=== PATIENT | male | born 1945 | race Caucasian/White ===

== ENCOUNTER 2024-02-05 07:49 | Outpatient (AMB) | payer MEDICARE, BC, SELFPAY ==
--- NOTE | 2024-02-05 07:54 | A.OFFVIS_ITS ---
Vital Signs 02/05/24 08:02 Height 5 ft 7 in Weight 175 lb 4 oz BMI 27.4 BP 126/70 Blood Pressure Location Rt brachial Position Sitting Respiration 16 Pulse 64 Pulse Source Pulse Oximeter Pulse Oximetry (%) 98 Oxygen Delivery Method Room Air Intake Visit Reasons: G-XE-Unvpidwnc Disease Intake Note: Pt presents for new pt evaluation for Parkinson's. Leadership Development Consultant Required: No Allergies doxycycline Allergy (Mild, Verified 02/05/24 08:06) Rash HPI Comments Details: 78y/o Right handed male comes for further management of Parkinsons Disease.He was diagnosed with Parkinsons disease about 3-4 years ago when he presented with rest tremors in his right hand, He was started on Carbidopa/levodopa 25/100 and has been on it since then. He reports mild memory issues. Sleep is ok .He has prostrate issues and has nocturia which affects his sleep. He denies nightmares, REM behavior disorder. He goes hunting often - has dreams about hunting.Now he feels he is too tired now. His mood is Ok and he is motivated.He is more anxious now. He always did cooking dinner and now he finds himself when he is peeling potatoes or carrots he feels like his coordination is poor. He did not notice any drooling but his throat is dry. His feels that is speech is softer but he says that she has hearing problems. He has mild difficulty with hand writing, using utensils, dressing , needs help with shower. His gait is slow and mildly off balance - ahs a few falls when he hunts No dizziness , no double vision . He has constipation and frequency , urgency He used to play football and has mild head injury. He exercises regularly. His younger sister and had Parkinsons disease His older sister has Parkinsons disease. He has h/o ocular migraines usually after strenuous activity 0-1/month he has loss of sense of smell- he cannot smell cervantes even when cooking [facility] Medical History (Updated 02/05/24 @ 08:47 by Sophie Crowell MD) Anxiety Parkinson's disease without dyskinesia Tobacco chew use Hyperlipidemia BPH (benign prostatic hyperplasia) GERD (gastroesophageal reflux disease) HTN (hypertension) DVT (deep venous thrombosis) CKD (chronic kidney disease) Osteoarthritis Diabetes Hypokalemia Basal cell carcinoma Surgical History H/O shoulder replacement Total knee replacement status History of carpal tunnel surgery Social History Household Members: Spouse Alcohol intake: former Comment: Stopped 3 years ago Patient Tobacco Use Status: Former Tobacco user Tobacco use type: Cigar Physical Exam Vital Signs: Last Vital Signs Pulse 64 02/05/24 08:02 Resp 16 02/05/24 08:02 BP 126/70 02/05/24 08:02 Pulse Ox 98 02/05/24 08:02 Oxygen Delivery Method Room Air 02/05/24 08:02 BMI result Body Mass Index 27.4 Const General: cooperative, healthy appearing and no acute distress Nutritional Appearance: average body habitus Orientation/consciousness: patient oriented x3 HEENT Head: Yes normal to inspection Neck Other: mild antecollis and restricted range of motion Neuro Other: Mild decreased blink and facial expression MOCA -26/30 Voice- normal Right UE high amplitude rest tremors Fine Finger movements - severely decreased jayme l>R Alternating hand movements - decreased jayme Hand movements - decreased jayme Foot taps- decreased jayme Right UE 3 +cog wheel rigidity gait - stooped, mild slowness and decreased arm swing L. no arm swing on right General: patient oriented x3 and no focal motor deficits Cranial nerves: Yes CN's II-XII intact bilaterally, Yes Bilaterally intact EOM present, Yes Normal facial strength present and Yes Midline tongue present Cognition (Neuro): normal cognition Motor exam (neuro): 5/5 motor strength present throughout Deep tendon reflexes (DTR's): Right triceps reflex intensity grade: 1+, Left triceps reflex intensity grade: 1+, Rt Biceps (C5, C6): 1+, Left biceps reflex intensity grade: 1+, Right brachioradialis reflex intensity grade: 1+, Left brachioradialis reflex intensity grade: 1+, Right patellar reflex intensity grade: 1+ and Left patellar reflex intensity grade: 1+ Coordination: [id number] test normal Psych Appearance: grossly normal Affect: Anxious affect present Assessment & Plan Assessment & Plan (1) Parkinson's disease without dyskinesia: Code(s): G20.A1 - Parkinson's disease without dyskinesia, without mention of fluctuations Category: Medical (2) Anxiety: Code(s): F41.9 - Anxiety disorder, unspecified Category: Medical Plan Increase fluid intake Continue Carbidopa/levodopa 25/100 tid I will trial him on escitalopram 5mg qd F/u Urology Diagnosis was discussed in detail. Medications: New escitalopram oxalate 5 mg PO DAILY 30 tabs 6RF Coding Level of Care Code New Pt Level 4 (31578) Complex EM visit Add On G2211 Diagnoses Parkinson's disease without dyskinesia G20.A1 Anxiety F41.9
[2024-02-05 08:02] VITALS: BP 126/70; PULSE 64; RESP 16; O2SAT 98; BMI 27.4
== END 2024-02-05 08:58 | disposition home or self-care (01) ==
PROVIDERS: PCP Physician Assistant Medical; Visit Provider Psychiatry & Neurology Neurology
DX: G20.A1 Parkinson's disease without dyskinesia, without mention of fluctuations (principal); F41.9 Anxiety disorder, unspecified
CPT/HCPCS: 99204

== ENCOUNTER → 2024-02-05 07:49 | Outpatient (BNVA) | payer MEDICARE, BC, SELFPAY | PROVIDERS: PCP Physician Assistant Medical; Visit Provider Psychiatry & Neurology Neurology ==

== ENCOUNTER 2024-09-09 10:57 | Outpatient (AMB) | payer MEDICARE, BC, SELFPAY ==
--- NOTE | 2024-09-09 11:07 | MHC.OFFVIS ---
Vital Signs 09/09/24 11:10 Height 5 ft 7 in Weight 184 lb BMI 28.8 Intake Visit Reasons: follow up Parkinson Disease Intake Note: Patient presents for parkinson's disease Allergies doxycycline Allergy (Mild, Verified 09/09/24 11:11) Rash Medication List - Last Reconciled 09/09/24 by Sophie Crowell MD alfuzosin ER 10 mg PO DAILY carbidopa-levodopa 25-100 mg 1 tab PO TID escitalopram oxalate 5 mg PO DAILY hydrochlorothiazide 25 mg PO DAILY lisinopril 10 mg PO DAILY omeprazole 20 mg PO DAILY oxybutynin chloride 5 mg PO DAILY potassium chloride ER 20 mEq PO BID rosuvastatin 40 mg PO DAILY saw palmetto 1,000 mg PO DAILY HPI Comments Details: 79y/o Right handed male comes for follow up of Parkinsons Disease.He reports losing his taste and cannot smell food His hand coordination is slower .He does hunting and is very active . History from last visit-He was diagnosed with Parkinsons disease about 3-4 years ago when he presented with rest tremors in his right hand, He was started on Carbidopa/levodopa 25/100 and has been on it since then. He reports mild memory issues. Sleep is ok .He has prostrate issues and has nocturia which affects his sleep. He denies nightmares, REM behavior disorder. He goes hunting often - has dreams about hunting.Now he feels he is too tired now. His mood is Ok and he is motivated.He is more anxious now. He always did cooking dinner and now he finds himself when he is peeling potatoes or carrots he feels like his coordination is poor. He did not notice any drooling but his throat is dry. His feels that is speech is softer but he says that she has hearing problems. He has mild difficulty with hand writing, using utensils, dressing , needs help with shower. His gait is slow and mildly off balance - ahs a few falls when he hunts No dizziness , no double vision . He has constipation and frequency , urgency He used to play football and has mild head injury. He exercises regularly. His younger sister and had Parkinsons disease His older sister has Parkinsons disease. He has h/o ocular migraines usually after strenuous activity 0-1/month he has loss of sense of smell- he cannot smell cervantes even when cooking [facility] Medical History Anxiety Parkinson's disease without dyskinesia Tobacco chew use Hyperlipidemia BPH (benign prostatic hyperplasia) GERD (gastroesophageal reflux disease) HTN (hypertension) DVT (deep venous thrombosis) CKD (chronic kidney disease) Osteoarthritis Diabetes Hypokalemia Basal cell carcinoma Surgical History H/O shoulder replacement Total knee replacement status History of carpal tunnel surgery Social History Household Members: Spouse Alcohol intake: former Comment: Stopped 3 years ago Patient Tobacco Use Status: Former Tobacco user Tobacco use type: Cigar Physical Exam Vital Signs: BMI result Body Mass Index 28.8 Const General: cooperative, healthy appearing and no acute distress Nutritional Appearance: average body habitus Orientation/consciousness: patient oriented x3 HEENT Head: Yes normal to inspection Neck Other: mild antecollis and restricted range of motion Neuro Other: Mild decreased blink and facial expression MOCA -26/30 Voice- normal Right UE high amplitude rest tremors Fine Finger movements - moderately decreased jayme l>R Alternating hand movements - decreased jayme Hand movements - decreased jayme Foot taps- decreased jayme Right UE 1 +cog wheel rigidity gait - stooped, mild slowness and decreased arm swing L. no arm swing on right General: patient oriented x3 and no focal motor deficits Cranial nerves: Yes CN's II-XII intact bilaterally, Yes Bilaterally intact EOM present, Yes Normal facial strength present and Yes Midline tongue present Cognition (Neuro): normal cognition Motor exam (neuro): 5/5 motor strength present throughout Coordination: [id number] test normal Psych Appearance: grossly normal Affect: Anxious affect present Assessment & Plan Assessment & Plan (1) Parkinson's disease without dyskinesia: Code(s): G20.A1 - Parkinson's disease without dyskinesia, without mention of fluctuations Category: Medical Qualifiers: Fluctuating manifestations: without fluctuating manifestations Qualified Code(s): G20.A1 - Parkinson's disease without dyskinesia, without mention of fluctuations (2) Anxiety: Code(s): F41.9 - Anxiety disorder, unspecified Category: Medical Plan Increase fluid intake Increase Carbidopa/levodopa 25/100 2 tabs tid continue escitalopram 5mg Diagnosis was discussed in detail. Medications: Changed From carbidopa-levodopa 25-100 mg 1 tab PO TID To carbidopa-levodopa 25-100 mg 2 tabs PO TID 180 tabs 6RF Coding Level of Care Code Est Pt Level 4 (66892) Complex EM visit Add On G2211 Diagnoses Parkinson's disease without dyskinesia or fluctuating manifestations G20.A1 Fluctuating manifestations: without fluctuating manifestations Anxiety F41.9
[2024-09-09 11:10] VITALS: BMI 28.8
== END 2024-09-09 12:01 | disposition home or self-care (01) ==
PROVIDERS: PCP Physician Assistant Medical; Visit Provider Psychiatry & Neurology Neurology
DX: G20.A1 Parkinson's disease without dyskinesia, without mention of fluctuations (principal); F41.9 Anxiety disorder, unspecified
CPT/HCPCS: 99214; G2211

== ENCOUNTER → 2024-09-09 10:57 | Outpatient (BNVA) | payer MEDICARE, BC, SELFPAY | PROVIDERS: PCP Physician Assistant Medical; Visit Provider Psychiatry & Neurology Neurology | DX: G20.A1 Parkinson's disease without dyskinesia, without mention of fluctuations (principal); F41.9 Anxiety disorder, unspecified | CPT/HCPCS: 99212 ==

== ENCOUNTER 2025-03-14 08:50 | Outpatient (AMB) | payer MEDICARE, BC, SELFPAY ==
[2025-03-14 08:58] VITALS: BP 128/72; BMI 28.0
--- NOTE | 2025-03-14 08:58 | MHC.OFFVIS ---
Vital Signs 03/14/25 08:58 Height 5 ft 7 in Weight 179 lb BMI 28.0 BP 128/72 Blood Pressure Location Rt brachial Position Sitting Intake Visit Reasons: 6 mnts f/u aappt Intake Note: Patient presents for follow up med adjustment Allergies doxycycline Allergy (Mild, Verified 03/14/25 08:59) Rash Medication List - Last Reconciled 03/14/25 by Sophie Crowell MD alfuzosin ER 10 mg PO DAILY carbidopa-levodopa 25-100 mg 2 tabs PO TID escitalopram oxalate 5 mg PO DAILY hydrochlorothiazide 25 mg PO DAILY lisinopril 10 mg PO DAILY omeprazole 20 mg PO DAILY oxybutynin chloride 5 mg PO DAILY potassium chloride ER 20 mEq PO BID rosuvastatin 40 mg PO DAILY saw palmetto 1,000 mg PO DAILY HPI Comments Details: 79y/o Right handed male comes for follow up of Parkinsons Disease.He is doing good, had a good hunting season.No falls . He has mild balance issues. He reports losing his taste and cannot smell food His hand coordination is slower . History from last visit-He was diagnosed with Parkinsons disease about 3-4 years ago when he presented with rest tremors in his right hand, He was started on Carbidopa/levodopa 25/100 and has been on it since then. He reports mild memory issues. Sleep is ok .He has prostrate issues and has nocturia which affects his sleep. He denies nightmares, REM behavior disorder. He goes hunting often - has dreams about hunting.Now he feels he is too tired now. His mood is Ok and he is motivated.He is more anxious now. He always did cooking dinner and now he finds himself when he is peeling potatoes or carrots he feels like his coordination is poor. He did not notice any drooling but his throat is dry. His feels that is speech is softer but he says that she has hearing problems. He has mild difficulty with hand writing, using utensils, dressing , needs help with shower. His gait is slow and mildly off balance - has a few falls when he hunts No dizziness , no double vision . He has constipation and frequency , urgency He used to play football and has mild head injury. He exercises regularly. His younger sister and had Parkinsons disease His older sister has Parkinsons disease. He has h/o ocular migraines usually after strenuous activity 0-1/month he has loss of sense of smell- he cannot smell cervantes even when cooking [facility] Medical History Anxiety Parkinson's disease without dyskinesia Tobacco chew use Hyperlipidemia BPH (benign prostatic hyperplasia) GERD (gastroesophageal reflux disease) HTN (hypertension) DVT (deep venous thrombosis) CKD (chronic kidney disease) Osteoarthritis Diabetes Hypokalemia Basal cell carcinoma Surgical History H/O shoulder replacement Total knee replacement status History of carpal tunnel surgery Social History Household Members: Spouse Alcohol intake: former Comment: Stopped 3 years ago Patient Tobacco Use Status: Former Tobacco user Tobacco use type: Cigar Physical Exam Vital Signs: Last Vital Signs BP 128/72 03/14/25 08:58 BMI result Body Mass Index 28.0 Const General: cooperative, healthy appearing and no acute distress Nutritional Appearance: average body habitus Orientation/consciousness: patient oriented x3 HEENT Head: Yes normal to inspection Neck Other: mild antecollis and restricted range of motion Neuro Other: Mild decreased blink and facial expression Voice- normal Right UE high amplitude rest tremors Fine Finger movements - moderately decreased jayme l>R Alternating hand movements - decreased jayme Hand movements - decreased jayme Foot taps- decreased jayme Right UE 1 +cog wheel rigidity gait - stooped, mild slowness and decreased arm swing L. no arm swing on right General: patient oriented x3 and no focal motor deficits Cranial nerves: Yes CN's II-XII intact bilaterally, Yes Bilaterally intact EOM present, Yes Normal facial strength present and Yes Midline tongue present Cognition (Neuro): normal cognition Motor exam (neuro): 5/5 motor strength present throughout Coordination: [id number] test normal Psych Appearance: grossly normal Affect: Anxious affect present Assessment & Plan Assessment & Plan (1) Parkinson's disease without dyskinesia: Code(s): G20.A1 - Parkinson's disease without dyskinesia, without mention of fluctuations Category: Medical Qualifiers: Fluctuating manifestations: without fluctuating manifestations Qualified Code(s): G20.A1 - Parkinson's disease without dyskinesia, without mention of fluctuations (2) Anxiety: Code(s): F41.9 - Anxiety disorder, unspecified Category: Medical Plan Increase fluid intake Carbidopa/levodopa / 2 tabs tid continue escitalopram 5mg Diagnosis was discussed in detail. Coding Level of Care Code Est Pt Level 4 (27784) Complex EM visit Add On G2211 Diagnoses Parkinson's disease without dyskinesia or fluctuating manifestations G20.A1 Fluctuating manifestations: without fluctuating manifestations Anxiety F41.9
--- OUTSIDE RECORDS SUMMARY | 2025-03-14 09:03 | XMS_ITS | Encounter Summary ---
Author Organization [facility] Address [address] [place] [address] Care Team Providers Care Electrical Timing Device Calibrator Name Role Phone Gerson Ortega Primary Care Provider [phone] Encounter Details Date Type Department Care Team (Late Contact Info) Description 11/02/2024 Lab Requisition [facility] - Main Lab [address] [facility] [place] [address] Bashir López MD [address] [place] [address] Urinary tract infection, site not specified; Overactive bladder Social History Tobacco Use Types Packs/Day Years Used Date Smoking Tobacco: Former Smokeless Tobacco: Current Alcohol Use Standard Drinks/Week Comments Yes 0 (1 standard drink = 0.6 oz pur e alcohol) Sex and Gender Information Value Date Recorded Sex Assigned at Male 02/18/2023 11:12 AM EDT Legal Sex Male 10:43 PM EST Gender Identity Male 02/18/2023 11:12 AM EDT Sexual Orientation Straight 02/18/2023 11 :12 AM EDT documented as of this encounter Plan of Treatment Upcoming Encounters Date Type Department Care Team (Late Contact Info) Description 04/11/2025 9:30 AM EDT Office Visit Adult Medicine [address] [phone] Mary Quesada PA [address] [place], [place] 04/13/2025 10:30 AM EDT Appointment Radiology Department [address] [phone] documented as of this encounter Procedures Procedure Name Priority Date/Time Associated Diagnosis Comments COMPLETE BLOOD COUNT Routine 11/02/2024 11:34 AM EST Urinary tract infection, site not specified Overactive bladder URINALYSIS WITH REFLEX MICROSCOPIC Routine 11/02/2024 12:00 AM EST Urinary tract infection, site not specified Overactive bladder URINALYSIS WITH REFLEX MICROSCOPIC Routine 11/02/2024 12:00 AM EST Urinary tract infection, site not specified Overactive bladder CULTURE URINE Routine 11/02/2024 12:00 AM EST Urinary tract infection, site not specified Overactive bladder documented in this encounter Results * (ABNORMAL) Complete blood count (11/02/2024 11:34 AM EST) WBC 4.7(L) 4.8 - 10.8 K/mcL LAB HEMETOLOGY METHOD 11/02/2024 1:37 PM [facility] RBC 4.80 4.50 - 5.50 M/mcL LAB HEMETOLOGY METHOD 11/02/2024 1:37 PM [facility] Hemoglobin 13.9 13.5 - 17.5 g/dL LAB HEMETOLOGY METHOD 11/02/2024 1:37 PM [facility] Hematocrit 43.5 42.0 - 54.0 % LAB HEMETOLOGY METHOD 11/02/2024 1:37 PM [facility] MCV 91.6 79.0 - 98.0 FL LAB HEMETOLOGY METHOD 11/02/2024 1:37 PM [facility] MCH 29.3 27.0 - 32.0 pcg LAB HEMETOLOGY METHOD 11/02/2024 1:37 PM EST [facility] MCHC 32.0 32.0 - 37.0 g/dL LAB HEMETOLOGY METHOD 11/02/2024 1:37 PM [facility] RDW 13.0 11.0 - 15.0 % LAB HEMETOLOGY METHOD 11/02/2024 1:37 PM [facility] Platelets 146 130 - 400 K/mcL LAB HEMETOLOGY METHOD 11/02/2024 1:37 PM [facility] MPV 11.0 7.0 - 11.0 FL LAB HEMETOLOGY METHOD 11/02/2024 1:37 PM [facility] NRBC 0.0 <1.0 % LAB HEMETOLOGY METHOD 11/02/2024 1:37 PM [facility] NRBC Absolute 0.00 <0.10 K/mcL LAB HEMETOLOGY METHOD 11/02/2024 1:37 PM [facility] Blood Venous blood specimen / Unknown 11/02/2024 11:34 AM EST 11/02/2024 1:05 PM EST us Bashir López MD LAB BLOOD ORDERABLES Final Resu lt [facility] [address] [place] [address], * Urinalysis with reflex microscopic (11/02/2024 12:00 AM EST) Specific [place] Urine 1.017 1.003 - 1.030 LAB URINALYSIS - AUTOMATED METHOD 11/02/2024 1:34 PM [facility] pH, Urine 5.5 5.0 - 8.0 pH LAB URINALYSIS - AUTOMATED METHOD 11/02/2024 1:34 PM [facility] Leukocytes, Urine Negative Negative LAB URINALYSIS - AUTOMATED METHOD 11/02/2024 1:34 PM [facility] Nitrite, Urine Negative Negative LAB URINALYSIS - AUTOMATED METHOD 11/02/2024 1:34 PM [facility] Protein, Urine Negative <=Trace mg/dL LAB URINALYSIS - AUTOMATED METHOD 11/02/2024 1:34 PM [facility] Glucose, Urine Negative Negative mg/dL LAB URINALYSIS - AUTOMATED METHOD 11/02/2024 1:34 PM [facility] Ketones, Urine Negative Negative mg/dL LAB URINALYSIS - AUTOMATED METHOD 11/02/2024 1:34 PM [facility] Urobilinogen, Urine 0.2 0.2 - 1.0 mg/dL LAB URINALYSIS - AUTOMATED METHOD 11/02/2024 1:34 PM [facility] Bilirubin, Urine Negative Negative LAB URINALYSIS - AUTOMATED METHOD 11/02/2024 1:34 PM [facility] Blood, Urine Negative Negative LAB URINALYSIS - AUTOMATED METHOD 11/02/2024 1:34 PM [facility] Urine Urine specimen obtained by clean catch procedure / Unknown 11/02/2024 11/02/2024 1:05 PM EST Bashir López MD LAB URINE ORDERABLES Final Resu lt [facility] [address] [place] [address], * Culture urine (11/02/2024 12:00 AM EST) Culture, Urine No growth 11/03/2024 10:49 AM [facility] Urine Urine specimen obtained by clean catch procedure / Unknown 11/02/2024 11/02/2024 1:05 PM EST us Bashir López MD LAB MICROBIOLOGY - GENERAL DINA HARVEY Final Result [facility] [address] [place] [address], documented in this encounter Visit Diagnoses Diagnosis Urinary tract infection, site not specified Overactive bladder Hypertonicity of bladder documented in this encounter Care Teams Electrical Timing Device Calibrator Relationship Specialty Start Date End Date Gerson Ortega PA [address] [place] [id number] PCP - General Internal Medicine 09/10/24 documented as of this encounter
--- OUTSIDE RECORDS SUMMARY | 2025-03-14 09:04 | XMS_ITS | Clinical Summary ---
Author Organization [facility] Address [address] [place] [address] Care Team Providers Care Supervisor [employer] Name Role Phone Ke Lopez MD Primary Care Provider [phone] Allergies Active Allergy Reactions Criticality Noted Date Comments Doxycycline 03/06/2010 Pt feels lumps in throat after using med Medications Medication Sig Dispensed Refills Start Date End Date Status aspirin 81 MG chewable tablet Chew by mouth. 0 Activ e hydrochlorothiazide (HYDRODIURIL) tablet 25 mg Take 25 mg by mouth. 0 12/31/2016 Active ibuprofen (ADVIL,MOTRIN) 200 MG tablet Take 400 mg by mouth. 0 Active [place] 3-6-9 Fatty Acids (TRIPLE OMEGA COMPLEX) CPDR Take by mouth. 0 Active oxybutynin (DITROPAN-XL) 5 MG 24 hr tablet TAKE 1 TABLET DAILY 0 12/23/2016 Activ e rosuvastatin (CRESTOR) tablet 40 mg TAKE 1 TABLET DAILY 0 12/23/2016 Activ e omeprazole (PRILOSEC) 20 MG capsule Take 20 mg by mouth. 0 07/23/2016 Active tamsulosin (FLOMAX) 0.4 MG CAPS Take 0.4 mg by mouth. 0 Active atorvastatin (LIPITOR) tablet 20 mg Take 20 mg by mouth. 0 Active enalapril-hydroCHLORO thiazide (VASERETIC) 10-25 MG per tablet Take 1 tablet by mouth. 0 Active oxyCODONE (ROXICODONE) 5 MG immediate release tablet Take 5 mg by mouth. 0 04/22/2018 Activ e ibuprofen (ADVIL,MOTRIN) 600 MG tablet Take 600 mg by mouth. 0 04/22/2018 Active omeprazole (PriLOSEC) 20 MG capsule Take 20 mg by mouth. 0 Active oxybutynin (DITROPAN) 5 MG tablet Take 5 mg by mouth. 0 Acti ve rosuvastatin (CRESTOR) tablet 40 mg Take 40 mg by mouth. 0 Active tamsulosin (FLOMAX) 0.4 MG CAPS Take 0.4 mg by mouth. 0 Active Blood Glucose Monitoring Suppl (FREESTYLE LITE) DANELLE Use to check blood sugar once daily 0 05/04/2018 Active Flaxseed, Linseed, (FLAX SEED OIL) 1300 MG CAPS Take by mouth. 0 Active Lancets (FREESTYLE) lancets Use to check blood sugar once daily 0 05/04/2018 Active Glucosamine-Chondroit in 250-200 MG CAPS Take by mouth. 0 Ac tive glucose blood (FREESTYLE LITE) test strip Use to check blood sugar once daily 0 05/04/2018 Active triamcinolone acetonide (KENALOG-40) 40 MG/ML injection Inject 40 mg into the articular space. 0 03/31/2019 Active hydroCHLOROthiazide (HYDRODIURIL) tablet 25 mg TAKE 1 TABLET DAILY 0 11/25/2018 Activ e oxybutynin (DITROPAN-XL) 5 MG 24 hr tablet TAKE 1 TABLET DAILY 0 11/25/2018 Activ e Active Problems Problem Noted Date Diagnosed Date Arthritis of knee, right 06/11/2019 Arthritis of knee, right 10/23/2018 Effusion of right knee joint 10/23/2018 Chronic pain of both knees 05/14/2017 Family History Medical History Relation Name Comments Heart disease Father Arthritis Mother Relation Name Status Comments Father Mother Social History Tobacco Use Types Packs/Day Years Used Date Smoking Tobacco: Some Days Cigars Smokeless Tobacco: Never Alcohol Use Standard Drinks/Week Comments Yes 0 (1 standard drink = 0.6 oz pur e alcohol) SOCIAL Sex and Gender Information Value Date Recorded Sex Assigned at Not on file Gender Identity Not on file Sexual Orientation Not on file Last Filed Vital Signs Vital Sign Reading Time Taken Comments Blood Pressure - - Pulse - - Temperature - - Respiratory Rate - - Oxygen Saturation - - Inhaled Oxygen Concentration - - Weight 84.8 kg (187 lb) 04/23/2019 9:09 AM EDT Height 175.3 cm (5' 9 ) 04/23/2019 9:09 AM EDT Body Mass Index 27.62 04/23/2019 9:09 AM EDT Plan of Treatment Health Maintenance Due Date Last Done Comments Hepatitis C Screening 1945 Depression Screening 1957 Preventative Health Evaluation 1963 Tobacco Cessation Counseling 1963 DTap / Tdap / Td (1 - Tdap) 1964 Shingrix-Zoster Vaccine (1 of 2) 1995 Fall Risk Assessment 2010 RSV Adult > 60+ Yrs or (1 - 1-dose 75+ series) 2020 COVID-19 Vaccine ( - season) 2024 01/01/2022, 11/02/2020, 10/12/2020 Influenza Vaccine (#1) 2025 3, 06/03/2019, 06/19/2018, Additional history exists Pneumococcal Vaccine Completed 07/07/2015, 01/04/20 11 Hepatitis B Vaccines Aged Out No long er eligible based on patient's age to complete this topic RSV Ped < 20 months Aged Out No longe r eligible based on patient's age to complete this topic Care Teams Supervisor [employer] Relationship Specialty Start Date End Date Ke Lopez MD PCP - General Linen Clerk 04/22/17
== END 2025-03-14 09:31 | disposition home or self-care (01) ==
LOC: HO.HSMS 08:51
PROVIDERS: PCP Physician Assistant Medical; Visit Provider Psychiatry & Neurology Neurology
DX: G20.A1 Parkinson's disease without dyskinesia, without mention of fluctuations (principal); F41.9 Anxiety disorder, unspecified
CPT/HCPCS: 99214; G2211

== ENCOUNTER → 2025-03-14 08:50 | Outpatient (BNVA) | payer MEDICARE, BC, SELFPAY | PROVIDERS: PCP Physician Assistant Medical; Visit Provider Psychiatry & Neurology Neurology | DX: G20.A1 Parkinson's disease without dyskinesia, without mention of fluctuations (principal); F41.9 Anxiety disorder, unspecified | CPT/HCPCS: 99212 ==